=== PATIENT | female | born 1995 | race Caucasian/White ===

== ENCOUNTER 2021-01-29 06:02 | Emergency (ER) | payer MEDICAID ==
[~2021-01-29] VITALS: Ht 157.5 cm; Wt 125.0 kg
[2021-01-29] MEDS ORDERED: PROAIR DIGIHAL90 MCG IH (06:30)
[2021-01-29] MEDS ORDERED: PREDNISONE20 MG PO (06:30)
[2021-01-29 07:05] LABS: BASO % 0.4 % (0.0-2.0); EOS % 0.2 % (0-4.0); GRAN # 3.7 (1.4-6.5); GRAN % 73.8 % (42.2-75.2); HEMOGLOBIN 13.1 g/dl (12.5-16.0); LYMPH # 0.8 (1.2-3.4); LYMPH % 15.6 % (20.0-51.0); MEAN CELL VOLUME 85 fl (80.0-100.0); MEAN CORPUSCULAR HEMOGLOBIN 28 pg (27.0-31.0); MEAN CORPUSCULAR HGB CONC 33 g/dl (33.0-37.0); MEAN PLATELET VOLUME 8.5 fl (7.4-10.4); MONO # 0.5 (0.1-0.6); MONO % 9.8 % (1.7-9.3); PLATELET COUNT 211 K/mm3 (130-400); RED BLOOD COUNT 4.69 M/mm3 (4.10-5.30); REDCELL DISTRIBUTION WIDTH-CV 12.5 % (11.5-14.5)
[2021-01-29 07:14] LABS: ALBUMIN 4.3 gm/dL (3.5-5.0); BILIRUBIN,TOTAL 0.3 mg/dL (0.0-1.0); CALCIUM 9.1 mg/dL (8.4-10.2); CREATININE, serum 0.61 (0.52-1.25); TOTAL PROTEIN 7.3 gm/dL (6.4-8.2)
[2021-01-29 07:58] VITALS: BP 112/71; PULSE 81; TEMP 98.7
== END 2021-01-29 08:05 | disposition home or self-care (01) ==
LOC: COL.ER 06:02
PROVIDERS: Personal Emergency Response Attendant
DX: U07.1 COVID-19 (principal)
CPT/HCPCS: J2405; J2930; J7030; J7050

== ENCOUNTER 2021-09-27 02:56 | Emergency (ER) | payer MEDICAID ==
[~2021-09-27] VITALS: Ht 157.5 cm; Wt 104.5 kg
[~2021-09-27 02:56] MED LIST: PREDNISONE20 MG PO; PROAIR DIGIHAL90 MCG IH
[2021-09-27 02:59] VITALS: TEMP 98.2
[2021-09-27 03:12] LABS: COLLECTION METHOD CLEAN CATCH
[2021-09-27 03:15] LABS: BASO % 0.4 % (0.0-2.0); EOS # 0.1 K/mm3 (0.0-0.7); GRAN # 5.9 K/mm3 (1.4-6.5); GRAN % 61.8 % (42.2-75.2); HEMATOCRIT 40.7 % (37.0-47.0); HEMOGLOBIN 13.5 g/dl (12.5-16.0); LYMPH # 2.9 K/mm3 (1.2-3.4); LYMPH % 30.7 % (20.0-51.0); MEAN CELL VOLUME 85 fl (80.0-100.0); MEAN CORPUSCULAR HEMOGLOBIN 28 pg (27-31); MEAN CORPUSCULAR HGB CONC 33 g/dl (33.0-37.0); MEAN PLATELET VOLUME 8.4 fl (7.4-10.4); MONO # 0.6 K/mm3 (0.1-0.6); MONO % 5.8 % (1.7-9.3); PLATELET COUNT 373 K/mm3 (130-400); RED BLOOD COUNT 4.78 M/mm3 (4.10-5.30); REDCELL DISTRIBUTION WIDTH-CV 12.5 % (11.5-14.5)
[2021-09-27 03:17] LABS: MUCOUS Present (NOT PRESENT); PH 6 (5-8); SQUAMOUS EPITHELIAL 0-2 /hpf (0-10); URINE APPEARANCE Hazy (CLEAR/HAZY); URINE BACTERIA None Seen /hpf (NONE SEEN); URINE BILIRUBIN Negative (NEGATIVE); URINE BLOOD Negative (NEGATIVE); URINE COLOR Yellow (YELLOW); URINE GLUCOSE Negative (NEGATIVE); URINE KETONE Negative (NEGATIVE); URINE LEUKOCYTE ESTERASE Negative (NEGATIVE); URINE NITRATE Negative (NEGATIVE); URINE PROTEIN(semi-quant) Negative (NEGATIVE); URINE RBC 0-2 /hpf (0-2); URINE UROBILINOGEN >=4.0 (NEGATIVE)
[2021-09-27 03:38] LABS: ALBUMIN 4.2 gm/dL (3.5-5.0); BILIRUBIN,TOTAL 0.4 mg/dL (0.2-1.2); CALCIUM 9.4 mg/dL (8.4-10.2); CREATININE, serum 0.81 mg/dL (0.57-1.11); POTASSIUM 3.6 mmol/L (3.5-4.5)
[2021-09-27] MEDS ORDERED: ZOFRAN ODT4 MG PO (04:50)
[2021-09-27] MEDS ORDERED: PRILOSEC 20MG20 MG PO (04:50)
[2021-09-27 05:03] VITALS: BP 132/78; PULSE 76
== END 2021-09-27 05:03 | disposition home or self-care (01) ==
LOC: COL.ER 02:56
PROVIDERS: Emergency Medicine
DX: R10.11 Right upper quadrant pain (principal); Z32.02 Encounter for pregnancy test, result negative
CPT/HCPCS: J1885; J2270; J2405; J7030; Q9967

== ENCOUNTER → 2021-10-07 | Outpatient (CLI) | payer MEDICAID ==
[~2021-10-07] MED LIST changes: +PRILOSEC 20MG20 MG PO; +ZOFRAN ODT4 MG PO
== END ==
LOC: COL.RAD 07:23
DX: K82.8 Other specified diseases of gallbladder (principal)

== ENCOUNTER 2021-10-24 10:27 | Day surgery (SDC) | payer MEDICAID ==
[2021-10-24] VITALS (12 sets, daily range): BP systolic 12–131; BP diastolic 62–71; PULSE 67–111; TEMP 98.1–98.8
[~2021-10-24] VITALS: Ht 157.5 cm; Wt 109.5 kg
[2021-10-24 11:29] LABS: BASO % 0.6 % (0.0-2.0); EOS # 0.1 K/mm3 (0.0-0.7); EOS % 2.1 % (0.0-4.0); GRAN # 3.4 K/mm3 (1.4-6.5); GRAN % 55.2 % (42.2-75.2); HEMATOCRIT 42.7 % (37.0-47.0); HEMOGLOBIN 14.1 g/dl (12.5-16.0); LYMPH # 2.3 K/mm3 (1.2-3.4); LYMPH % 37.4 % (20.0-51.0); MEAN CELL VOLUME 87 fl (80.0-100.0); MEAN CORPUSCULAR HEMOGLOBIN 29 pg (27-31); MEAN CORPUSCULAR HGB CONC 33 g/dl (33.0-37.0); MEAN PLATELET VOLUME 8.1 fl (7.4-10.4); MONO # 0.3 K/mm3 (0.1-0.6); MONO % 4.4 % (1.7-9.3); PLATELET COUNT 307 K/mm3 (130-400); RED BLOOD COUNT 4.93 M/mm3 (4.10-5.30); REDCELL DISTRIBUTION WIDTH-CV 12.6 % (11.5-14.5)
[2021-10-24 11:31] LABS: ALBUMIN 4.3 gm/dL (3.5-5.0); BILIRUBIN,TOTAL 0.6 mg/dL (0.2-1.2); CREATININE, serum 0.67 mg/dL (0.57-1.11); TOTAL PROTEIN 7.7 gm/dL (6.2-8.1)
[2021-10-24] MEDS ORDERED: NORCO 325 MG-51 TAB PO (14:18)
[2021-10-24] MEDS ORDERED: MOTRIN 600600 MG/TAB PO (14:18)
--- NOTE | 2021-10-24 15:30 | NUR ---
PT TO BAY 8 PER CART FROM PACU. RECEIVED REPORT FROM RN. VS OBTAINED. PT REMAINS ON 3L PER NC. PT SLEEPING. WILL CONTINUE TO MONITOR PT.
--- NOTE | 2021-10-24 15:45 | NUR ---
PT CONTINUES TO REST. WILL CONTINUE TO MONITOR.
--- NOTE | 2021-10-24 16:00 | NUR ---
PT CONTINUES TO BE VERY SLEEPY. REMAINS ON 2L PER NC. PT WAKES HER SELF AND GASPS. PT GIVEN ICE PACK FOR ABDOMEN. REMINDED PT TO BREATHE THROUGH NOSE AND OUT OF MOUTH.
--- NOTE | 2021-10-24 16:15 | NUR ---
PT CONTINUES TO REMAIN SLEEPY. STARTLES SELF WHEN SHE WAKES. PT CONTINUES WITH ICE PACK TO ABDOMEN. PT TAKING A FEW ICE CHIPS. WILL CONTINUE TO MONITOR PT.
--- NOTE | 2021-10-24 16:15 | NUR ---
PT REMAINS SLEEPY. CONTINUES TO STARTLE SELF AND GRASPS. PT C/O NAUSEA. ZOFRAN 4MG IV GIVEN. DISCUSSED WITH PT RE: STAYING OVER THE NIGHT. PT CONFIRMS SHE WOULD LIKE TO STAY. PT CONTINUES WITH ICE PACK ON ABDOMEN. WILL PLACE CALL TO DR NASH FOR PT UPDATE. WILL CONTINUE TO MONITOR PT.
--- NOTE | 2021-10-24 16:33 | NUR ---
CALL TO DR NASH FOR PT UPDATE. PT CONTINUES TO REQUIRE O2 2L PER NC. PT NOT TRANSITIONING WELL, DIFFICULTY STAYING AWAKE, C/O OF NAUSEA, STATES "SHE FORGETS TO BREATHE" WHEN SHE IS SLEEPING. PT'S COLOR IS PALE COMPARED TO ADMISSION ASSESSMENT. RECEIVED ORDERS FOR STAT LABS AND ADMIT FOR HOSPITAL STAY.
--- NOTE | 2021-10-24 16:45 | NUR ---
PT CONTINUES TO REMAIN SLEEPY. WILL CONTINUE TO MONITOR PT. AWAITING ROOM FOR TRANSFER.
--- NOTE | 2021-10-24 16:55 | NUR ---
PT C/O NAUSEA. ZOFRAN 4MG IV AT THIS TIME. WILL CONTINUE TO MONITOR.
[2021-10-24 17:06] LABS: BASO % 0.3 % (0.0-2.0); GRAN # 8.4 K/mm3 (1.4-6.5); GRAN % 87.3 % (42.2-75.2); HEMOGLOBIN 12.5 g/dl (12.5-16.0); LYMPH % 10.7 % (20.0-51.0); MEAN CELL VOLUME 87 fl (80.0-100.0); MEAN CORPUSCULAR HEMOGLOBIN 29 pg (27-31); MEAN CORPUSCULAR HGB CONC 33 g/dl (33.0-37.0); MEAN PLATELET VOLUME 8.1 fl (7.4-10.4); MONO # 0.1 K/mm3 (0.1-0.6); MONO % 1.1 % (1.7-9.3); PLATELET COUNT 272 K/mm3 (130-400); RED BLOOD COUNT 4.39 M/mm3 (4.10-5.30); REDCELL DISTRIBUTION WIDTH-CV 12.4 % (11.5-14.5)
[2021-10-24 17:17] LABS: ALBUMIN 3.8 gm/dL (3.5-5.0); BILIRUBIN,TOTAL 0.6 mg/dL (0.2-1.2); CALCIUM 8.4 mg/dL (8.4-10.2); CREATININE, serum 0.71 mg/dL (0.57-1.11); POTASSIUM 3.9 mmol/L (3.5-4.5); TOTAL PROTEIN 6.7 gm/dL (6.2-8.1)
--- NOTE | 2021-10-24 17:30 | NUR ---
REPORT GIVEN TO NURA FOLEY.
[2021-10-25 04:30] VITALS: BP 100/61; PULSE 63; TEMP 98.4
--- NOTE | 2021-10-25 06:00 | NUR ---
ASSESSMENT COMPLETE FOR THIS SHIFT. PT IN BED VERY UNCOMFORTABLE. PT COMPLAINED OF ABD PAIN SHE RATED A 10. PT GIVEN NORCO FOR PAIN. PAIN EVENTUALLY RELIEVED BY NORCO. I ALSO ENCOURAGED PT TO WALK, TO HELP GET SOME OF THE GAS FROM SURGERY OUT. PT DENIED PALPITATIONS, N,V,D, SOB OR DIZZINESS. PT EXPRESSED NO OTHER NEEDS AT THIS TIME. CALL LIGHT WITHIN REACH.
[2021-10-25 07:30] VITALS: BP 108/59; PULSE 75; TEMP 97.9
--- NOTE | 2021-10-25 10:13 | NUR ---
PT ASSESSED. NO COMPLAINTS OF NAUSEA OR DYSPNEA. COMPLAINS OF PAIN AND IS MEDICATED PER MAR. NO OTHER CONCERNS AT THIS TIME. CALL LIGHT WITHIN REACH
[2021-10-25 11:14] VITALS: BP 100/67; PULSE 55; TEMP 98.1
--- NOTE | 2021-10-25 12:58 | NUR ---
stopped by but nothing needed at this time.
[2021-10-25] MEDS ORDERED: ZOFRAN 4MG T4 MG/TAB PO (14:35)
--- NOTE | 2021-10-25 16:51 | NUR ---
PT DSICHARGE TEACHING COMPLETE. NO CONCERNS OR QUESTIONS AT THIS TIME. IV REMOVED. INFORMATION GIVEN ABOUT FOLLOW UP APPOINTMENTS AND MEDICATIONS. PT ESCORTED OUT BY [facility]
== END 2021-10-25 16:51 | disposition home or self-care (01) ==
LOC: SDCO 10:27 → MEDICAL 17:25 → SDCO 10-25 16:51
PROVIDERS: Surgery
DX: K80.10 Calculus of gallbladder with chronic cholecystitis without obstruction (principal); K21.9 Gastro-esophageal reflux disease without esophagitis; Z79.899 Other long term (current) drug therapy
CPT/HCPCS: OP; J0690; J1100; J1170; J1885; J2175; J2270; J2405; J2550; J2704; J7120

== ENCOUNTER → 2021-12-19 | Outpatient (CLI) | payer MEDICAID ==
[~2021-12-19] MED LIST changes: +MOTRIN 600600 MG/TAB PO; +NORCO 325 MG-51 TAB PO; +ZOFRAN 4MG T4 MG/TAB PO
== END ==
LOC: MC.RAD 11:00
DX: N64.4 Mastodynia (principal); N64.52 Nipple discharge